=== PATIENT | male | born 1945 | race Caucasian/White ===

== ENCOUNTER → 2017-03-25 | Day surgery (SDC) | payer OTHER ==
[2017-03-03 13:59] VITALS: Ht 185.4 cm; Wt 134.1 kg
[~2017-03-25] VITALS: Ht 185.4 cm; Wt 134.1 kg
[~2017-03-25] MED LIST: 500ML BSS 0.3ML EPI 1:1000PF IRRIG ONE; ACET-1257 PO; ACETAMINOPHEN 325 MG TAB PO PRN; ALLO300T2 PO; AMVISC PLUS 0.8ML SYRINGE INT OCU ONE; ASPI-428 PO; ASPI81TA28 PO; ATROPINE SULFATE 0.1 MG/ML 5ML SYR IV PRN; B-COTAB18 PO; BSS FLUSH ONE; CHOL1000 PO; CLB200 PO; COLC0.6T54 PO; EpHEDrine SULFATE INJ 50 MG/ML AMP IV PRN; EpINEphrine INJ 1MG/ML AMP 1 MG/ML AMP ONE; FENTANYL CITRATE INJ 50 MCG/1 ML 2 ML VIAL IV PRN; FLUMAZENIL 0.1 MG/1 ML 10 ML VIAL IV PRN; GLIP-197 PO; HYDROmorphone INJ 2 MG/ML SYR/VIAL IV PRN; LABETALOL HCL IV 5 MG/ML 20ML IV PRN; LACTATED RINGER'S 1000ML 500 ML IV SCH; LIDOCAINE 3.5% OPH GEL PER APPLICATION CHARGE ONE; LIDOCAINE HCL 1% MPF 2 ML VIAL ONE; LOSA100T65 PO; MEPERIDINE HCL 25 MG/ML CARP IV PRN; METF-384 PO; MIDAZOLAM HCL 1 MG/ML 2ML VIAL ONE; NALOXONE HCL 0.4 MG/1 ML VIAL/CARP IV PRN; OCUCOAT 1 ML SOLN IO ONE; ONDA8TAB6 PO; ONDANSETRON INJ 2 MG/ML 2 ML VIAL IV PRN; PHENYLEPHRINE 100MCG/ML 5ML SYR IV PRN; PLQ200 PO; POVIDONE-IODINE OP SOLN 30 ML BTL ONE; PROPARACAINE 0.5% OP SOLN PER DROP CHARGE OPR SCH; RXC5 PO; SIMV5TAB5 PO; SNK PO; TOBRAMYCIN/DEXAMETHASONE OPH OINT PER APPLN CHARGE ONE
[2017-03-25] MEDS: PHENYLEPHRINE HCL 2.5% OP SOLN PER DROP CHARGE OPR SCH ×2 (07:40→07:45)
[2017-03-25] MEDS: TROPICAMIDE 1% OP SOLN PER DROP CHARGE OPR SCH ×2 (07:41→07:46)
[2017-03-25] MEDS: CYCLOPENTOLATE HCL 1% OP SOLN PER DROP CHARGE OPR SCH ×2 (07:42→07:47)
[2017-03-25] MEDS: KETOROLAC 0.5% OP SOLN PER DROP CHARGE OPR SCH ×2 (07:43→07:48)
[2017-03-25] MEDS: GATIFLOXACIN OP SOLN PER DROP CHARGE OPR SCH ×2 (07:44→07:49)
--- NOTE | 2017-03-25 08:13 | History & Physical Bridge - SC ---
H&P Re-Evaluation Bridge Note: I have examined the patient, reviewed the History & Physical and in the interval since the performance of the History & Physical I have noted the following changes of clinical significance: No changes noted
--- NOTE | 2017-03-25 08:49 | Discharge Instructions-SurgCtr ---
Discharge Instructions Date of Service Mar 25, 2017. Visit Reason for Visit: Right Cataract Discharge Discharge Diagnosis / Problem: cataract Discharge Goals Goal(s): Improve function Medications Stopped Medications Name(s): Per pt metformin stopped as instructed 03-23. Activity Recommendations Activity Limitations: per Instructions/Follow-up section Anesthesia . Post Anesthesia Instructions: If you have had General Anesthesia or IV Sedation: * Do not drive today. * Resume driving when surgeon permits. * Do not make important decisions or sign legal documents today. * Call surgeon for: 1. Temperature elevations greater than 101 degrees F. 2. Uncontrollable pain. 3. Excessive bleeding. 4. Persistent nausea and vomiting. 5. Medication intolerance (nausea, vomiting or rash). * For nausea and vomiting use only clear liquids such as: tea, soda, bouillon until nausea subsides, then gradually increase diet as tolerated. * If you have any concerns or questions, call your surgeon's office. If physician is unavailable and it is an emergency, call 911 or go to the nearest emergency room. . Instructions / Follow-Up Instructions / Follow-Up ACTIVITY RECOMMENDATIONS: * No strenuous lifting, jogging or running for 4 days * No swimming or yard work for 1 week. * Limited bending is permitted, such as putting on shoes. RETURN TO SCHOOL/WORK: No work until seen by physician in office. MEDICATIONS: Resume previous medications unless instructed otherwise by your surgeon. This includes eye drops for glaucoma. Zymaxid/Gatifloxacin (monique cap) - one drop every 2 hours until bedtime Nevanac/Ilevro/Prolensa/Ketorolac (jordan cap) - one drop every 4 hours until bedtime Prednisolone (white/pink cap, SHAKE WELL) - one drop every 2 hours until bedtime Starting tomorrow - all 3 drops every 4 hours until seen in the office Optive drops - as needed for discomfort SPECIAL CARE INSTRUCTIONS: * Wear eyeshield when sleeping, for four nights. * You may wear your own glasses or sunglasses while awake. * You may read or watch TV * You may shower and wash your face, but be gentle around the eye and pat dry. * Blurry vision and mild irritation are normal. * Call office if pain is more severe or vision becomes dark at . FOLLOW UP VISIT: Follow-up with Dr Garcia tomorrow. Diet Recommendations Home Diet: resume previous diet Procedures Procedures Performed: Right Cataract Phacoemulsification With Intraocular Lens Implant Pending Studies Studies pending at discharge: no Medical Emergencies . Who to Call and When: Medical Emergencies: If at any time you feel your situation is an emergency, please call 911 immediately. . Non-Emergent Contact Non-Emergency issues call your: Byproduct Engineer . . "Provider Documentation" section prepared by Yonas Garcia. .
--- NOTE | 2017-03-25 08:50 | [facility] Operative Report ---
Operative Report Date of Service Mar 25, 2017. Operative Report 1. PREOPERATIVE DIAGNOSIS: Cataract of the right eye. 2. POSTOPERATIVE DIAGNOSIS: Same. 3. PROCEDURE: Phacoemulsification with intraocular lens implantation of the right eye. SURGEON: Dr. Yonas Garcia. ANESTHESIA: Topical Lidocaine gel, 1% Non- Preserved intracameral Lidocaine, and monitored intravenous sedation. INDICATIONS FOR THE PROCEDURE: The patient is a 71 - year-old male with a history of cataract of the right eye causing significant visual impairment. The details of the proposed procedure were explained to the patient who asked appropriate questions and following discussion of all risks, benefits and alternatives agreed to have the procedure done. 4. OPERATION AND FINDINGS: DESCRIPTION OF PROCEDURE: After informed consent was obtained, the patient was brought to the Operating Room at the [facility]. The patient was placed in a supine position and then the right eye was prepped and draped in the usual sterile fashion for intraocular surgery. A drop of topical Lidocaine gel was placed in the operative eye. A wire lid speculum was then placed in the fornices. A corneal paracentesis was then created temporally. The Non-Preserved Lidocaine was then instilled into the anterior chamber. The anterior chamber was then pressurized with viscoelastic. A 2.0 mm clear corneal incision was then created temporally. A cystotome was inserted into the anterior chamber and used to create a tear in the anterior lens capsule. This capsular tear was then used to create a small flap and the flap was dragged in a counterclockwise direction in order to create a continuous curvilinear capsulorrhexis. Hydrodissection was accomplished with balanced salt solution. Phacoemulsification of the lens nucleus was then performed in a standard [id number] technique. The phaco time was 23 seconds with an average power of 6 %. The remaining cortical material was removed using irrigation aspiration. The capsular bag was then filled with viscoelastic. The capsule was polished extensively. A B&L Crystlens AO1UV +17.0 diopters lens was then loaded into the injector and injected into the capsular bag. The remaining viscoelastic was removed with the irrigation aspiration handpiece. The wound was hydrated and then checked and found to be watertight. The intraocular pressure was checked and found to be adequate. The wire lid speculum was removed and the patient's face was cleaned and dried. TobraDex ointment was placed in the inferior fornix. The patient was discharged to the Recovery Room having tolerated the procedure well. There were no complications. The patient will be seen tomorrow in the office for follow-up. I attest to the content of the Intraoperative Record and any orders documented therein. Any exceptions are noted below.
--- NOTE | 2017-03-25 09:01 | Anesthesia Progress Nt - [facility] ---
Anesthesia Post Op Note Date & Time Mar 25, 2017 at 09:01 Vital Signs Pain Intensity: 0 Vital Signs Past 12 Hours Date Time Temp Pulse Resp B/P (MAP) Pulse Ox O2 Delivery O2 Flow Rate FiO2 03/25/17 07:32 36.9 52 16 116/72 (87) 96 Room Air Notes Mental Status: alert / awake / arousable, participated in evaluation Pt Amnestic to Procedure: Yes Nausea / Vomiting: adequately controlled Pain: adequately controlled Airway Patency, RR, SpO2: stable & adequate BP & HR: stable & adequate Hydration State: stable & adequate Anesthetic Complications: no major complications apparent
[2017-03-25 09:19] VITALS: BP 122/69; PULSE 54; TEMP 36.2; O2SAT 96
== END | disposition home or self-care (01) ==
LOC: X.SURG 06:55
PROVIDERS: ATTEND Ophthalmology
DX: H26.9 Unspecified cataract (principal); E11.36 Type 2 diabetes mellitus with diabetic cataract; I48.91 Unspecified atrial fibrillation; I10 Essential (primary) hypertension; E78.5 Hyperlipidemia, unspecified; M19.90 Unspecified osteoarthritis, unspecified site; G47.33 Obstructive sleep apnea (adult) (pediatric); E66.8 Other obesity; Z68.39 Body mass index [BMI] 39.0-39.9, adult

== ENCOUNTER 2017-05-26 06:08 | Inpatient (IN) | payer OTHER ==
[2017-04-30 09:35] VITALS: BMI 39.0
--- NOTE | 2017-04-30 10:17 | PAT Medication Instructions ---
Service Date Apr 30, 2017. Current Home Medication List Acetaminophen (Tylenol Extra Strength), 1,000 MG PO Q6 PRN for Pain Allopurinol (Zyloprim), 300 MG PO QAM Aspirin (Ecotrin Low Strength), 1 TAB PO QAM B-Complex Vitamins (Vitamin B Complex), 1 TAB PO QAM Cholecalciferol (Vitamin D3), 2,000 UNITS PO QAM Colchicine (Colchicine), 0.6 MG PO DAILY PRN for GOUT FLARES Glipizide (Glipizide Er), 5 MG PO BID Hydroxychloroquine Sulfate (Hydroxychloroquine Sulfat), 1 TAB PO BID Losartan Potassium (Cozaar), 100 MG PO QAM Metformin Hcl (Glucophage), 1,000 MG PO BID Simvastatin (Zocor), 5 MG PO QPM Medication Instructions For Your Scheduled Surgery - Hold the following medications 48 hours prior to surgery: Metformin Hcl (Glucophage), 1,000 MG PO BID - Hold the following medications the morning of surgery: Losartan Potassium (Cozaar), 100 MG PO QAM Glipizide (Glipizide Er), 5 MG PO BID B-Complex Vitamins (Vitamin B Complex), 1 TAB PO QAM Cholecalciferol (Vitamin D3), 2,000 UNITS PO QAM - Take the following medications the morning of surgery with a sip of water OTHERWISE NOTHING TO EAT OR DRINK AFTER MIDNIGHT: Allopurinol (Zyloprim), 300 MG PO QAM Aspirin (Ecotrin Low Strength), 1 TAB PO QAM Colchicine (Colchicine), 0.6 MG PO DAILY PRN for GOUT FLARES Acetaminophen (Tylenol Extra Strength), 1,000 MG PO Q6 PRN for Pain (may take if needed up to 4 hours prior to surgery) Hydroxychloroquine Sulfate (Hydroxychloroquine Sulfat), 1 TAB PO BID - Take the following medications as scheduled the night before surgery: Simvastatin (Zocor), 5 MG PO QPM Glipizide (Glipizide Er), 5 MG PO BID Colchicine (Colchicine), 0.6 MG PO DAILY PRN for GOUT FLARES Acetaminophen (Tylenol Extra Strength), 1,000 MG PO Q6 PRN for Pain Hydroxychloroquine Sulfate (Hydroxychloroquine Sulfat), 1 TAB PO BID If you have any questions please call us at [phone] or [phone] or [phone]
[2017-04-30 10:57] LABS: BASO % 0.2 %; BASO ABS # 0.01 K/uL (0-0.2); COMPLETE YES; EOS % 8.5 %; HEMATOCRIT 40.2 % (42-52); IG% 0.2 %; LYMPH % 24.6 %; LYMPH ABS # 1.39 K/uL (1.2-3.4); MEAN CELL VOLUME 80.9 fL (80-100); MEAN CORPUSCULAR HEMOGLOBIN 25.2 pg (25-34); MEAN CORPUSCULAR HGB CONC 31.1 g/dl (32-36); MEAN PLATELET VOLUME 9.4 fL (7.4-10.4); MONO % 12.1 %; NEUT % 54.4 %; PLATELET COUNT 254 K/uL (130-400); RED BLOOD COUNT 4.97 M/uL (4.7-6.1); WHITE BLOOD COUNT 5.64 K/uL (4.8-10.8)
[2017-04-30 11:06] LABS: PROTHROMBIN TIME (PATIENT) 10.4 SECONDS (9.0-12.0)
[2017-04-30 11:24] LABS: CALCIUM 8.9 mg/dl (8.5-10.1); CREATININE 0.88 mg/dl (0.60-1.40); POTASSIUM 4.2 mmol/L (3.5-5.1)
[2017-04-30 11:50] LABS: ESTIMATED AVERAGE GLUCOSE 126 mg/dl; HA1C FLAG Normal (Normal)
[2017-04-30 12:36] LABS: URINE APPEARANCE CLEAR (CLEAR); URINE BILIRUBIN NEG (NEG); URINE COLOR YELLOW; URINE NITRITE NEG (NEG); URINE PH 5.5 (4.5-7.5); UROBILINOGEN NEG (NEG); ZZUR CULT IF INDIC CLEAN CATCH NO
[2017-04-30 12:51] LABS: MANUAL MICROSCOPIC REQUIRED? NO; REVIEW REQ? NO
[2017-05-26] VITALS (8 sets, daily range): BP systolic 107–153; BP diastolic 47–84; PULSE 49–63; TEMP 36.4–37.3; O2SAT 95–97; Ht 185.4 cm; Wt 136.3 kg
[~2017-05-26] VITALS: Ht 185.4 cm; Wt 136.3 kg
[~2017-05-26 06:08] MED LIST changes: -500ML BSS 0.3ML EPI 1:1000PF IRRIG ONE; -ACETAMINOPHEN 325 MG TAB PO PRN; +ACETAMINOPHEN 500 MG TAB PO SCH; -AMVISC PLUS 0.8ML SYRINGE INT OCU ONE; -ASPI81TA28 PO; -ATROPINE SULFATE 0.1 MG/ML 5ML SYR IV PRN; -BSS FLUSH ONE; +CEFAZOLIN 3000 MG/65 ML D5W 65 ML IV SCH; -CLB200 PO; +CeleBREX 200 MG CAP PO SCH; +DEXAMETHASONE 4 MG TAB PO SCH; -EpHEDrine SULFATE INJ 50 MG/ML AMP IV PRN; -EpINEphrine INJ 1MG/ML AMP 1 MG/ML AMP ONE; +FAMOTIDINE 20 MG TAB PO SCH; -FENTANYL CITRATE INJ 50 MCG/1 ML 2 ML VIAL IV PRN; -FLUMAZENIL 0.1 MG/1 ML 10 ML VIAL IV PRN; +GABAPENTIN 300 MG CAP PO SCH; -HYDROmorphone INJ 2 MG/ML SYR/VIAL IV PRN; -LABETALOL HCL IV 5 MG/ML 20ML IV PRN; +LACTATED RINGER'S 1000ML 1,000 ML IV SCH; -LACTATED RINGER'S 1000ML 500 ML IV SCH; +LACTATED RINGER'S 1000ML IV SCH; +LACTATED RINGER'S 500 ML IV SCH; -LIDOCAINE 3.5% OPH GEL PER APPLICATION CHARGE ONE; -LIDOCAINE HCL 1% MPF 2 ML VIAL ONE; -MEPERIDINE HCL 25 MG/ML CARP IV PRN; +METOCLOPRAMIDE HCL 10 MG TAB PO SCH; -MIDAZOLAM HCL 1 MG/ML 2ML VIAL ONE; -NALOXONE HCL 0.4 MG/1 ML VIAL/CARP IV PRN; -OCUCOAT 1 ML SOLN IO ONE; -ONDA8TAB6 PO; -ONDANSETRON INJ 2 MG/ML 2 ML VIAL IV PRN; -PHENYLEPHRINE 100MCG/ML 5ML SYR IV PRN; -POVIDONE-IODINE OP SOLN 30 ML BTL ONE; -PROPARACAINE 0.5% OP SOLN PER DROP CHARGE OPR SCH; +ROPIVACAINE 5MG/ML 30 ML 150 MG, BUPIVACAINE/EPINEPHR 0.5% MPF 30 ML, KETOROLAC TROMETH... INFIL SCH; -RXC5 PO; -SNK PO; -TOBRAMYCIN/DEXAMETHASONE OPH OINT PER APPLN CHARGE ONE
[2017-05-26] MEDS ORDERED: MIDAZOLAM HCL 1 MG/ML 2ML VIAL ONE ×4 (06:39→07:13)
[2017-05-26] MEDS ORDERED: FENTANYL CITRATE INJ 50 MCG/1 ML 2 ML VIAL ONE (06:40)
[2017-05-26] MEDS ORDERED: BUPIVACAINE 0.25% 30 ML VIAL ONE (06:50)
[2017-05-26] MEDS ORDERED: BUPIVACAINE 0.5 % 5 MG/1 ML PF 10ML VIAL ONE (06:50)
--- NOTE | 2017-05-26 07:15 | History and Physical ---
History & Physical Date May 26, 2017. Chief Complaint LEFT KNEE PAIN History of Present Illness The patient is a 72 year old male with complaints of left knee pain x 5 years. Patient rates his pain 6/10. He has pain with his daily activities. He has limited standing and walking tolerance. Pain is worse with weight bearing. Patient has failed injections, NSAIDS. He is now scheduled for left TKA with Dr. Hanks. Past Medical/Surgical History Medical Problems: (1) DM type 2 (diabetes mellitus, type 2) (2) Gout (3) History of diverticulitis (4) Hyperlipidemia (5) Hypertension (6) Sleep apnea Surgical Problems: (1) H/O hernia repair (2) S/P colectomy (3) S/P hemorrhoidectomy Additional History Hepatic Disease: No Endocrine Disorder: Yes Kidney Disease: No Hypertension: Yes Heart Disease: No Bleeding Tendencies: No Infectious Diseases: No Other: HTN Hypercholesterolemia Sleep apea with CPAP Afib DM II Acid reflux Denies CAD, DVT Allergies Coded Allergies: No Known Allergies (Verified , 05/26/17) Home Medications Scheduled Allopurinol (Zyloprim), 300 MG PO QAM Aspirin (Ecotrin Low Strength), 1 TAB PO QAM B-Complex Vitamins (Vitamin B Complex), 1 TAB PO QAM Cholecalciferol (Vitamin D3), 2,000 UNITS PO QAM Glipizide (Glipizide Er), 5 MG PO BID Hydroxychloroquine Sulfate (Hydroxychloroquine Sulfat), 1 TAB PO BID Losartan Potassium (Cozaar), 100 MG PO QAM Metformin Hcl (Glucophage), 1,000 MG PO BID Simvastatin (Zocor), 5 MG PO QPM Scheduled PRN Acetaminophen (Tylenol Extra Strength), 1,000 MG PO Q6 PRN for Pain Colchicine (Colchicine), 0.6 MG PO DAILY PRN for GOUT FLARES Physical Examination Skin: warm/dry, no rash Eyes: normal inspection, EOMI, sclerae normal ENT: normal ENT inspection, pharynx normal Head: normocephalic, atraumatic Neck: supple, no adenopathy, trachea midline Respiratory/Chest: lungs clear, normal breath sounds, no respiratory distress Cardiovascular: regular rate, rhythm, no edema, no murmur Abdomen / GI: normal bowel sounds, non tender Back: normal inspection Extremities: normal inspection, normal range of motion, + pertinent finding ( neutral alligment, ROM 0-115, +1-2 medial laxity + crepitus) Neurologic/Psych: no motor/sensory deficits, alert, normal reflexes, oriented x 3 Diagnosis DJD left knee Plan of Treatment Patient will be admitted for a left total knee arthroplasty with Dr. Hanks. Patient will likely use ASA 81 bid for DVT prophylaxis. He is planning to do in home therapy with [facility] upon discharge.
[2017-05-26] MEDS ORDERED: BACITRACIN 50000 UNIT VIAL ONE (07:35)
[2017-05-26] MEDS ORDERED: ORTHO JOINT ANESTHETIC ONE (07:35)
[2017-05-26] MEDS ORDERED: POVIDONE-IODINE OP SOLN 30 ML BTL ONE (07:35)
[2017-05-26] MEDS ORDERED: FENTANYL CITRATE INJ 50 MCG/1 ML 2 ML VIAL IV PRN (07:45)
[2017-05-26] MEDS ORDERED: MEPERIDINE HCL 25 MG/ML CARP IV PRN (07:45)
[2017-05-26] MEDS ORDERED: ONDANSETRON INJ 2 MG/ML 2 ML VIAL IV PRN ×2 (07:45→10:15)
[2017-05-26] MEDS ORDERED: LABETALOL HCL IV 5 MG/ML 20ML IV PRN (07:45)
[2017-05-26] MEDS ORDERED: EpHEDrine SULFATE INJ 50 MG/ML AMP IV PRN (07:45)
[2017-05-26] MEDS ORDERED: HYDROmorphone INJ 1 MG/ML SYR IV PRN (07:45)
[2017-05-26] MEDS ORDERED: ATROPINE SULFATE 0.1 MG/ML 5ML SYR IV PRN (07:45)
[2017-05-26] MEDS ORDERED: PROPOFOL IV EMULSION 10 MG/ML 20 ML VIAL IV ONE (08:30)
[2017-05-26] MEDS ORDERED: LIDOCAINE HCL 2% 2 ML VIAL (20MG/ML) ONE (08:30)
--- NOTE | 2017-05-26 09:26 | [facility] Post Operative Brief Note ---
Immediate Operative Summary Operative Date May 26, 2017. Pre-Operative Diagnosis Left Knee Degenerative Joint Disease Post-Operative Diagnosis Left Knee Degenerative Joint Disease Procedure(s) Performed Left Total Knee Arthroplasty Surgeon Dr Hanks Clothes Marker Surgeon(s) Evita Lieberman PA-C Estimated Blood Loss 10CC Findings Severe OA Specimens As Per Surgeon A. Left Knee Bone and Tissue Disposition Recovery Room / PACU
[2017-05-26] MEDS ORDERED: ZOLPIDEM TARTRATE 5 MG TAB PO PRN (10:15)
[2017-05-26] MEDS ORDERED: COLCHICINE 0.6 MG TAB PO PRN (10:15)
[2017-05-26] MEDS ORDERED: SOD PHOSPHATE/SOD BIPHOSPHATE ENEMA 132 ML BTL PR PRN (10:15)
[2017-05-26] MEDS ORDERED: MoRPHine SULFATE 2 MG/ML CARP IV PRN (10:15)
[2017-05-26] MEDS ORDERED: MAGNESIUM HYDROXIDE SUSP 30 ML UDC PO PRN (10:15)
[2017-05-26] MEDS ORDERED: BISACODYL 10 MG SUPP PR PRN (10:15)
[2017-05-26] MEDS ORDERED: DiphenhydrAMINE HCL 50 MG/ML VIAL IV PRN (10:15)
[2017-05-26] MEDS ORDERED: ALUMINUM/MAGNESIUM/SIMETH (MAALOX MAX) 30 ML UDC PO PRN (10:15)
[2017-05-26] MEDS ORDERED: OXYCODONE HCL IR 5 MG TAB (IMMEDIATE RELEASE) PO PRN (10:15)
--- NOTE | 2017-05-26 10:17 | OPERATIVE REPORT ---
DATE OF OPERATION: 05/26/2017 PREOPERATIVE DIAGNOSIS: Osteoarthritis, left knee. POSTOPERATIVE DIAGNOSIS: Osteoarthritis, left knee. PROCEDURE: Left total knee arthroplasty. SURGEON: Dr. Hanks. OTOLARYNGOLOGY SURGEON: CHAN Herrera. ANESTHESIA: Spinal. COMPLICATIONS: None. IMPLANTS USED: Femoral size 6, tibia size 5, tibial poly 9, and patella size 39. DISPOSITION: Recovery room stable. OPERATION AND FINDINGS: Following induction of spinal anesthesia, the patient's left leg was prepped and draped in the usual sterile manner. Limb was exsanguinated with an Esmarch bandage and tourniquet was inflated to 350 mmHg. A longitudinal incision was made anteriorly. Subcutaneous tissue was sharply dissected. Electrocautery was used for hemostasis. Prepatellar bursa was incised and median parapatellar incision was performed. Patella was everted and the knee was flexed. Fat pad was removed to aid in visualization and the anterior and posterior cruciate ligaments were removed. The medial face of the tibia was cleared of soft tissue first with a Bovie and a Narayan elevator. This tissue was retracted posteriorly using a blunt Hohmann. A Escobar retractor was used to expose the synovium above on the anterior aspect of the femur and this was removed down to bone. The PSI guide was placed on the distal femur and two pins were placed anteriorly and kept in position and two additional pins were placed distally and removed. The distal femoral cutting block was placed in position and the distal femoral cut was used in the +0 setting. Next, the cutting block was removed and the 6 block was placed in the distal end of the femur. Care was taken to ensure appropriate external rotation and feeler gauge was used to ensure no notching would occur. The femoral block was centered on the distal femur and in the medial and lateral direction and was fixed using two bone screws. The gold pins were then removed. The oscillating saw was used to create the bone cuts and the distal femoral cutting block was removed and the reciprocating saw was used to further trim the femoral cuts as well as a deep in the area for the trochlear groove. Next, posterior condyle remnants were removed. Following this, a meniscal clamp and knife were utilized to remove the anterior portion of both medial and lateral meniscus. The proximal tibia PSI guide was placed into position and the proximal tibial cutting guide was screwed into position. The extra medullary alignment guide was utilized to ensure appropriate alignment. The proximal tibia was cut and the proximal tibial cutting block was removed and this bone fragment was removed. The appropriate guide was used to perform the notch cut on the distal femur and a lamina search strategist and a cochlear knife were utilized to finish both medial and lateral meniscectomies to remove any remnants of the posterior or anterior cruciate ligaments. Following this, the distal femoral component was impacted into position and blunt Roxi was used to sublux the tibia anteriorly. The proximal tibia was sized and a 5 tibial tray was chosen as the size to be used. This was put into position and appropriate external rotation and a double check with extramedullary alignment guide was performed. The canal for the tibial stem was prepared first with a 17 mm drill and then the punch and a mallet and the trial tibial poly was placed. A 9 was chosen the size to be used. It was brought to extension and the patella was prepared with the patellar reamer. A 39 component was chosen the size to be used. The trial component was placed and knee was taken through a full range of motion and there was found to be no lateral subluxation of the tibia. No lateral release was required. The trials were all removed. The final components were obtained and assembled. Cement was mixed. The knee was thoroughly irrigated and the ortho mix was injected about the knee joint. The final components were cemented into position. After thoroughly suctioning and drying the bone ends, all excess cement was removed. The knee was held in extension while the cement hardened. The wound was irrigated and closed over a Hemovac drain. #1 Vicryl was used to close the extensor mechanism. Subcutaneous tissues closed using 0 Dexon. Skin was closed with meliza. Sterile dressing of Adaptic, 4 x 4's, sterile Webril, and Chris was applied. The patient tolerated the procedure well. Due to the complex nature of the procedure, the entire surgery was performed with the operational assistance of ____CHAN. The medication assistant, under direct supervision, was involved in the actual performance of all aspects of the surgical procedure including hemostasis, tissue retraction and incision, instrument management, patient positioning, and wound closure. I attest to the content of the Intraoperative Record and any orders documented therein. Any exceptions are noted below. KIERA
[2017-05-26] MEDS ORDERED: PHARMACY GLYCEMIC MGMT CONSULT SCH (10:28)
--- NOTE | 2017-05-26 10:52 | DIAGNOSTIC IMAGING REPORT ---
TWO VIEWS LEFT KNEE CLINICAL HISTORY: Postoperative examination. FINDINGS: AP and crosstable lateral portable views of the left knee are obtained. A left knee arthroplasty is in near anatomic alignment. There has been undersurface remodeling of the patella. No acute fracture is seen. There are expected postoperative changes around the knee including skin clips, a surgical drain, soft tissue edema, and subcutaneous gas. IMPRESSION: Expected postoperative changes status post left knee arthroplasty. No acute fracture is seen. Electronically signed by: Shiva Mitchell M.D. 05/26/2017 10:51 AM Dictated Date/Time: 05/26/2017 10:51 AM
--- NOTE | 2017-05-26 11:36 | Anesthesiology Progress Note ---
Anesthesia Post Op Note Date & Time May 26, 2017 at 11:35 Vital Signs Pain Intensity: 0 Vital Signs Past 12 Hours Date Time Temp Pulse Resp B/P (MAP) Pulse Ox O2 Delivery O2 Flow Rate FiO2 05/26/17 11:25 45 16 106/58 98 Nasal Cannula 2 05/26/17 11:15 56 16 114/58 98 Nasal Cannula 2 05/26/17 11:05 36.8 50 16 104/62 95 Nasal Cannula 2 05/26/17 10:55 49 16 101/66 97 Nasal Cannula 2 05/26/17 10:45 55 16 92/61 97 Nasal Cannula 2 05/26/17 10:35 48 16 110/58 92 Nasal Cannula 2 05/26/17 10:25 36.9 50 16 104/69 97 Nasal Cannula 2 05/26/17 10:15 53 16 118/64 99 Mask 10 05/26/17 10:05 56 16 106/60 99 Mask 10 05/26/17 09:59 36.4 57 16 102/59 99 Mask 10 05/26/17 06:41 36.5 54 20 153/84 97 Notes Mental Status: alert / awake / arousable, participated in evaluation Pt Amnestic to Procedure: Yes Nausea / Vomiting: adequately controlled Pain: adequately controlled Airway Patency, RR, SpO2: stable & adequate BP & HR: stable & adequate Hydration State: stable & adequate Neuraxial Anesthesia: was administered, sensory block is resolving Anesthetic Complications: no major complications apparent
--- NOTE | 2017-05-26 12:10 | Pharmacy Progress Note ---
Glycemic Control Intl Consult Date of Service May 26, 2017. Scope Glycemic Pharmacist consulted by Dr Lieberman on 05/26 for glycemic control and to write orders per [facility] ED inpatient glycemic control protocol Objective Weight (Kilograms): 136.30 Accuchecks BSG (last 24hrs): Test 05/26/17 06:34 05/26/17 10:06 Bedside Glucose 126 mg/dl (70-99) 133 mg/dl (70-99) HbA1c 6.0% on 04/30/17 Recent Pertinent Medications Outpatient Anti-diabetic Regimen: * Metformin 1000 mg po BID * Glipizide ER 5 mg po BID Risk Factors for Insulin Resistance: * Steroids: Dexamethasone 8 mg po x1 preop * Infection: cefazolin pre- and post-op prophylaxis * Recent Surgery: POD 0 s/p L TKA * Diet Assessment & Plan ASSESSMENT: * ADA & AACE recommend a goal blood sugar range 140-180 mg/dl for the majority of critically ill & non-critically ill patients. However, more stringent targets may be selected in individual cases. * 72 yo M s/p TKA 05/26/17 * T2DM well-controlled as outpatient on oral agents alone * Oral agents are not recommended for inpatient use d/t drug interactions, changing PO intake, and difficulty titrating for acute hyper/hypoglycemia. ADA recommends re-initiating outpatient oral agents 1-2 days prior to discharge if/ when appropriate if they were held on admission. * Will hold oral agents for admission and utilize SQ basal bolus insulin regimen which is the recommended regimen for inpatient glycemic control. * BSG's pre- and post-op good at 126 and 133 mg/dL respectively * Anticipate that stress 2nd steroids and surgery may contribute to significant hyperglycemia without insulin administration * Will start Lantus x1 now, with additional Lantus this PM if BSG's > 180 mg/dL * Will start ~weight based Novolog (stress 2) * May require overnight check if BSG's increase significantly * ADA & AACE recommend a goal blood sugar range 140-180 mg/dl for the majority of critically ill & non-critically ill patients. However, more stringent targets may be selected in individual cases. Will utilize more stringent goal of 110-140mg/dl to facilitate wound healing. PLAN FOR INPATIENT GLYCEMIC CONTROL: * Hold outpatient oral diabetes medications * Basal insulin with LANTUS 25 units SQ x1 now. Additional 10 units SC HS x1 if BSG > 180 mg/dL * Correctional Insulin with NOVOLOG per scale ACHS or Q6hrs while NPO * Goal Range: Low 110 mg/dL - High 140 mg/dL * Correction Factor: 20 mg/dL/unit * Nutritional / Prandial insulin per carb ratio of 1 unit per 6 grams CHO consumed * Please note that the plan above was derived based on current level of insulin resistance and hospital stress. These recommendations are appropriate for inpatient admission only. Plan of care upon discharge will need to be reassessed to avoid potential outpatient hypo/hyperglycemia. Thank you.
[2017-05-26] MEDS ORDERED: INSULIN GLARGINE SOLOSTAR 100 UNITS/ML 3 ML PEN SC ONE ×3 (12:30→21:00)
[2017-05-26] MEDS: SODIUM CHLORIDE 0.9% 1000ML 1,000 ML IV SCH ×2 (13:04→19:50)
[2017-05-26] MEDS: INSULIN ASPART 100 UNITS/ML 3 ML PEN SC SCH ×3 (13:53→21:23)
[2017-05-26] MEDS: KETOROLAC TROMETHAMINE 15 MG/ML VIAL IV. SCH ×2 (13:57→19:50)
[2017-05-26] MEDS: ACETAMINOPHEN 500 MG TAB PO SCH ×2 (13:57→21:19)
[2017-05-26] MEDS: CEFAZOLIN IV 2,000 MG in DEXTROSE 5% 50ML 50 ML IV SCH ×2 (16:54→23:57)
[2017-05-26] MEDS: ASPIRIN 81 MG ECTAB PO SCH (21:19)
[2017-05-26] MEDS: SIMVASTATIN 5 MG TAB PO SCH (21:19)
[2017-05-26] MEDS: SENNA 8.6 MG TAB PO SCH (21:19)
[2017-05-27] MEDS: KETOROLAC TROMETHAMINE 15 MG/ML VIAL IV. SCH ×4 (02:17→19:55)
[2017-05-27 03:55] VITALS: BP 101/48; PULSE 44; TEMP 36.5; O2SAT 98
[2017-05-27] MEDS: INSULIN ASPART 100 UNITS/ML 3 ML PEN SC SCH ×6 (04:01→21:00)
[2017-05-27] MEDS: SODIUM CHLORIDE 0.9% 1000ML 1,000 ML IV SCH (05:36)
[2017-05-27] MEDS: ACETAMINOPHEN 500 MG TAB PO SCH ×3 (05:36→21:30)
[2017-05-27 05:52] LABS: HEMATOCRIT 29.8 % (42-52); MEAN CELL VOLUME 80.8 fL (80-100); MEAN CORPUSCULAR HEMOGLOBIN 26.3 pg (25-34); MEAN CORPUSCULAR HGB CONC 32.6 g/dl (32-36); MEAN PLATELET VOLUME 9.8 fL (7.4-10.4); PLATELET COUNT 231 K/uL (130-400); RED BLOOD COUNT 3.69 M/uL (4.7-6.1); WHITE BLOOD COUNT 11.69 K/uL (4.8-10.8)
[2017-05-27 05:55] LABS: PROTHROMBIN TIME (PATIENT) 10.9 SECONDS (9.0-12.0)
[2017-05-27 06:13] LABS: BUN/CREATININE RATIO 29.4 (10-20); CALCIUM 8.2 mg/dl (8.5-10.1); POTASSIUM 4.3 mmol/L (3.5-5.1)
--- NOTE | 2017-05-27 07:49 | Orthopedic Progress Note ---
Orthopedic Progress Note Date of Service May 27, 2017. Subjective Post OP Day: 1 Reports: feeling well, Denies: chest pain, SOB, nausea / vomiting, light headedness, calf pain Objective calves soft nontender, N/V intact, dressing C/D/I, A&O x3, toes mobile, hemovac drainage (850/150cc per shift (no TXA)) Date Time Temp Pulse Resp B/P (MAP) Pulse Ox O2 Delivery O2 Flow Rate FiO2 05/27/17 03:55 36.5 44 16 101/48 (65) 98 Room Air 05/26/17 22:50 36.6 51 16 111/47 (68) 96 Room Air 05/26/17 19:50 Room Air 05/26/17 19:28 37.3 62 19 107/55 (72) 97 Nasal Cannula 4.0 05/26/17 18:45 Room Air 05/26/17 14:51 58 18 142/83 (102) 97 Nasal Cannula 4.0 05/26/17 13:55 36.6 63 18 116/71 (86) 96 Nasal Cannula 4.0 05/26/17 13:07 52 19 134/77 (96) 95 Nasal Cannula 4.0 05/26/17 12:25 36.4 49 22 118/71 (87) 95 Nasal Cannula 4.0 05/26/17 12:15 97 Nasal Cannula 2.0 05/26/17 11:55 36.6 52 15 113/61 (78) 97 Nasal Cannula 2.0 05/26/17 11:25 45 16 106/58 98 Nasal Cannula 2 05/26/17 11:15 56 16 114/58 98 Nasal Cannula 2 05/26/17 11:05 36.8 50 16 104/62 95 Nasal Cannula 2 05/26/17 10:55 49 16 101/66 97 Nasal Cannula 2 05/26/17 10:45 55 16 92/61 97 Nasal Cannula 2 05/26/17 10:35 48 16 110/58 92 Nasal Cannula 2 05/26/17 10:25 36.9 50 16 104/69 97 Nasal Cannula 2 05/26/17 10:15 53 16 118/64 99 Mask 10 05/26/17 10:05 56 16 106/60 99 Mask 10 05/26/17 09:59 36.4 57 16 102/59 99 Mask 10 Laboratory Results 24 Hours: Test 05/27/17 05:05 Hematocrit 29.8 % Hemoglobin 9.7 g/dL Prothromb Time International Ratio 1.0 Prothrombin Time 10.9 SECONDS Assessment & Plan Assessment: POD#1 sp left TKA Afib Inhouse Planning Pain Management: Celebrex, PO Tylenol, Oxy IR DVT Prophylaxis: TEDs, SCDs, ASA Discharge Planning Discharge Planning: home with home health ([facility] TODAY WITH [facility].)
[2017-05-27] MEDS ORDERED: ACET-1257 PO (07:54)
[2017-05-27] MEDS ORDERED: SNK PO (07:55)
[2017-05-27] MEDS ORDERED: RXC5 PO (07:55)
[2017-05-27] MEDS ORDERED: CLB200 PO (07:55)
[2017-05-27] MEDS ORDERED: ASPI-428 PO (07:55)
[2017-05-27] MEDS ORDERED: ONDA8TAB6 PO (07:55)
--- NOTE | 2017-05-27 07:55 | Discharge Instructions ---
Discharge Instructions Date of Service May 27, 2017. Admission Reason for Admission: Left Knee Osteoarthritis Discharge Discharge Diagnosis / Problem: SP LEFT TKA Discharge Goals Goal(s): Decrease discomfort, Improve function, Increase independence Activity Recommendations Activity Limitations: per Instructions/Follow-up section . Instructions / Follow-Up Instructions / Follow-Up ACTIVITY RECOMMENDATIONS: SELF CARE INSTRUCTIONS AFTER TOTAL KNEE REPLACEMENT A. You may need to continue a physical therapy program after discharge from the hospital. There are several options available to you. Your doctor will assist you in selecting the best one for you. 1. An out-patient facility 2 to 3 times a week for therapy or home therapy. 2. Continue working on all exercises taught to you in the hospital. Your goals should be to increase bending of your knee to 90 degrees and beyond and to fully straighten your knee. B. You may progress at your own pace from walking with a walker or crutches to a cane; then to no assistive devices. C. Make walking a part of your daily routine. Be up as much as comfortable with rest periods throughout the day. Rest with leg elevation is very important. Use the ice wrap frequently for the first 3-4 weeks. D. There are no restrictions on activities. You may ride in a car, shop, participate in agent producer and all social activities. E. Wear the long elastic stockings (MAILE hose) 20 hours a day for 2 weeks after surgery. They can be removed several times a day for laundering and for a bath. F. You may shower, no tub baths until cleared by your doctor. SPECIAL CARE INSTRUCTIONS: VERY IMPORTANT TO READ AND REVIEW A. There are a few signs you need to watch for after you are home. Call [facility] if you notice any of the followin. Increased severe knee pain. Some pain is expected especially when you exercise. 2. Increased swelling in your leg or knee; pain or swelling of the calf muscle in either lower leg. 3. Any fluid drainage from the incision. 4. Shortness of breath or chest pain. B. Please call [facility] at if you have any concerns or questions about your operation or recovery. The doctor or his nurse will return your call promptly. C. You must take antibiotics before dental work, bladder, bowel or other surgery. Your doctor will provide you with a permanent care to carry describing this precaution. IMPORTANT: * REMEMBER TO TAKE ASPIRIN, 81 MG, TWICE DAILY FOR 4 WEEKS UNLESS OTHERWISE DIRECTED. THIS IS YOUR BLOOD THINNER. * HIGH RISK PATIENTS MAY BE PRESCRIBED A STRONGER BLOOD THINNER. THIS WILL BE PROVIDED AT DISCHARGE. * CALL IF INCREASED PAIN, REDNESS, DRAINAGE OR FEVER GREATER THAT 101. * WEAR MAILE HOSE 20 HOURS PER DAY FOR 2 WEEKS. * YOU MAY HAVE A LARGE BAND-AID LIKE DRESSING (SILVERON). THIS WILL REMAIN ON YOUR INCISION FOR 7 DAYS, THEN CAN BE REMOVED. IF INCISION IS LEAKING THROUGH DRESSING, CALL THE OFFICE . FOLLOW UP VISIT: If appointment is not already scheduled: Please call [facility] to make a follow-up appointment for 2 weeks after your surgery at . Current Hospital Diet Patient's current hospital diet: Diabetes Type 2 Diet Discharge Diet Recommended Diet: Regular Diet Procedures Procedures Performed: Left Total Knee Arthroplasty Pending Studies Studies pending at discharge: no Laboratory Results Hemoglobin A1c Test 04/30/17 10:26 Range/Units Estimated Average Glucose 126 mg/dl Hemoglobin A1c 6.0 H 4.5-5.6 % Medical Emergencies . Who to Call and When: Medical Emergencies: If at any time you feel your situation is an emergency, please call 911 immediately. . Non-Emergent Contact Non-Emergency issues call your: Surgeon . "Provider Documentation" section prepared by Natalia Lieberman. . VTE Core Measure Inpt VTE Proph given/why not?: Other Anticoagulation, T.E.D. Stockings, SCD's [place] Drug Monitoring Program Search Results: patient reviewed within database, no issues identified
[2017-05-27 08:02] VITALS: BP 96/56; PULSE 50; TEMP 36.5; O2SAT 95
[2017-05-27] MEDS: ASPIRIN 81 MG ECTAB PO SCH ×2 (08:40→21:04)
[2017-05-27] MEDS: ALLOPURINOL 300 MG TAB PO SCH (08:41)
[2017-05-27] MEDS: PANTOprazole SOD 40 MG TAB PO SCH (08:41)
[2017-05-27] MEDS: MULTIVITAMIN TAB PO SCH (08:41)
[2017-05-27] MEDS: LOSARTAN POTASSIUM 50 MG TAB PO SCH (08:44)
[2017-05-27] MEDS: METFORMIN HCL 500 MG TAB PO SCH ×2 (08:48→17:38)
[2017-05-27 09:13] VITALS: O2SAT 95
--- NOTE | 2017-05-27 10:05 | Pharmacy Progress Note ---
Glycemic: Assessment & Plan Date of Service May 27, 2017. Assessment & Plan The patient is currently receiving 67 units of insulin per day. BSGs ranging 139 - 254 mg/dl over the past 24hrs. * Basal insulin: Lantus 28 units total given yesterday * Correctional Insulin: Novolog Correction per scale ACHS Goal Range: Low 110 mg/dL - High 140 mg/dL Correction Factor: 15 mg/dL/unit * Prandial insulin: Per carb ratio of 1 unit per 6 grams CHO consumed ASSESSMENT: * Patient required a significant amt of insulin yesterday due to stress of surgery and preop Decadron dose * BSGs are much improved this AM * Patient may be discharged today so will resume outpatient oral agents since diet has advanced * Of note, I found out that patient gets glipizide immediate release filled as an outpatient, not the ER as listed on the med rec * I expect that the patient will still need some insulin coverage with breakfast as the Decadron will most likely still be on board due to its long t1/ 2 PLAN FOR INPATIENT GLYCEMIC CONTROL: * Resume metformin and glipizide * Continue CF 15, CR 6 for Novolog - may loosen/remove CR with lunch depending on BSG * No further Lantus doses Pharmacy will continue to monitor patient daily and write orders per [facility] inpatient glycemic control protocol. Thanks. DISCHARGE RECOMMENDATIONS: * A1c well controlled * Continue metformin and glipizide - sent message to Natalia Lieberman re: glipizide needing to be changed to immediate release as I was unable to update on med list
--- NOTE | 2017-05-27 10:50 | Anesthesiology Progress Note ---
Anesthesia Post Op Note Date & Time May 27, 2017 at 10:50 Vital Signs Pain Intensity: 2.0 Vital Signs Past 12 Hours Date Time Temp Pulse Resp B/P (MAP) Pulse Ox O2 Delivery O2 Flow Rate FiO2 05/27/17 09:13 95 Room Air 05/27/17 08:02 36.5 50 14 96/56 (69) 95 Room Air 05/27/17 03:55 36.5 44 16 101/48 (65) 98 Room Air Notes Mental Status: alert / awake / arousable, participated in evaluation Pt Amnestic to Procedure: Yes Nausea / Vomiting: adequately controlled Pain: adequately controlled Airway Patency, RR, SpO2: stable & adequate BP & HR: stable & adequate Hydration State: stable & adequate Neuraxial Anesthesia: was administered, sensory block resolved Anesthetic Complications: no major complications apparent
[2017-05-27 15:00] VITALS: BP 115/64; PULSE 53; TEMP 36.5; O2SAT 98
[2017-05-27] MEDS: SIMVASTATIN 5 MG TAB PO SCH (21:03)
[2017-05-27] MEDS: SENNA 8.6 MG TAB PO SCH (21:04)
[2017-05-27 23:16] VITALS: BP 92/51; PULSE 52; TEMP 36.7; O2SAT 98
[2017-05-28] MEDS: KETOROLAC TROMETHAMINE 15 MG/ML VIAL IV. SCH ×2 (01:57→08:27)
[2017-05-28] MEDS: ACETAMINOPHEN 500 MG TAB PO SCH (06:06)
[2017-05-28 07:54] VITALS: BP 126/69; PULSE 52; TEMP 36.9; O2SAT 98
--- NOTE | 2017-05-28 07:54 | Orthopedic Progress Note ---
Orthopedic Progress Note Date of Service May 28, 2017. Subjective Post OP Day: 2 Reports: feeling well, Denies: chest pain, SOB, nausea / vomiting, light headedness, calf pain Objective calves soft nontender, N/V intact, dressing C/D/I (SILVERLON), A&O x3, toes mobile Date Time Temp Pulse Resp B/P (MAP) Pulse Ox O2 Delivery O2 Flow Rate FiO2 05/28/17 00:18 Room Air 05/27/17 23:16 36.7 52 16 92/51 (65) 98 Room Air 05/27/17 15:40 Room Air 05/27/17 15:00 36.5 53 18 115/64 (81) 98 Room Air 05/27/17 09:13 95 Room Air 05/27/17 08:02 36.5 50 14 96/56 (69) 95 Room Air Assessment & Plan Assessment: POD#2 sp left TKA Afib Inhouse Planning Pain Management: Celebrex, PO Tylenol, Oxy IR DVT Prophylaxis: TEDs, SCDs, ASA Discharge Planning Discharge Planning: home with home health ([place] [facility])
[2017-05-28] MEDS: INSULIN ASPART 100 UNITS/ML 3 ML PEN SC SCH (08:00)
[2017-05-28] MEDS: METFORMIN HCL 500 MG TAB PO SCH (08:28)
[2017-05-28] MEDS: ASPIRIN 81 MG ECTAB PO SCH (08:29)
[2017-05-28] MEDS: ALLOPURINOL 300 MG TAB PO SCH (08:29)
[2017-05-28] MEDS: PANTOprazole SOD 40 MG TAB PO SCH (08:29)
[2017-05-28] MEDS: LOSARTAN POTASSIUM 50 MG TAB PO SCH (08:30)
[2017-05-28] MEDS: MULTIVITAMIN TAB PO SCH (08:30)
[2017-05-28 10:19] VITALS: BP 126/69; PULSE 52; TEMP 36.9; O2SAT 98
[2017-05-28] MEDS ORDERED: CeleBREX 200 MG CAP PO SCH (21:00)
--- NOTE | 2017-06-03 14:11 | DISCHARGE SUMMARY ---
DISCHARGE DIAGNOSIS: Degenerative joint disease, left knee. SECONDARY DIAGNOSIS: None. CONSULTS: None. COMPLICATIONS: None. PROCEDURE: The patient underwent a left total knee arthroplasty with Dr. Hanks on 05/26/2017. BRIEF HISTORY: Please see previously dictated history and physical. HOSPITAL SUMMARY: The patient was admitted on the above day for the above procedure. Procedure went without complication. Postop day 1, the patient was feeling well without complaints. He denied chest pain or shortness of breath. Vital signs were stable. He was afebrile. Dressing was clean, dry and intact. He was neurovascularly intact. Calves were soft and nontender. The patient drained 850 and 150 mL per shift from his Hemovac. Hemoglobin was 9.7. INR was 1.0. The patient began physical therapy per protocol. Postop day 2, the patient continued to improve. He denied chest pain or shortness of breath. Vital signs were stable. He was afebrile. Silverlon dressing was clean, dry and intact. He was neurovascularly intact. The patient progressed with therapy and was discharged home later that day in stable condition. For further review, please see the chart. Lab, x-ray data and discharge instructions as per chart. MTDD
--- NOTE | 2017-07-07 22:24 | OPERATIVE REPORT ---
DATE OF OPERATION: 05/26/2017 ADDENDUM: STEWARD/STEWARDESS SECOND: POPPY Gonzales I attest to the content of the Intraoperative Record and any orders documented therein. Any exception s are noted below.
== END 2017-05-28 11:45 | disposition home health service (06) | DRG 470 ==
LOC: C.ACU 06:08 → C.3E 07:10 → ENRESERV 10:33
PROC: 0SRD0J9 Replacement of Left Knee Joint with Synthetic Substitute, Cemented, Open Approach (ICD-10-PCS; principal; 2017-05-26 08:00)
DX: M17.12 Unilateral primary osteoarthritis, left knee (principal); E11.9 Type 2 diabetes mellitus without complications; M10.9 Gout, unspecified; E78.5 Hyperlipidemia, unspecified; I48.91 Unspecified atrial fibrillation; I10 Essential (primary) hypertension; G47.30 Sleep apnea, unspecified; Z79.82 Long term (current) use of aspirin; Z79.84 Long term (current) use of oral hypoglycemic drugs; Z79.899 Other long term (current) drug therapy